=== PATIENT | female | born 1995 | race Caucasian/White ===

== ENCOUNTER 2023-12-29 18:11 | Emergency (ER) | payer MEDICAID ==
[~2023-12-29] VITALS: Ht 160 cm; Wt 90.7 kg
[2023-12-29 18:24] VITALS: TEMP 98.3; O2SAT 100
[2023-12-29 19:20] LABS: HEMATOCRIT. 40.3 % (36.0-48.0); HEMOGLOBIN. 12.7 g/dL (12.0-16.0); MEAN CORPUSCULAR HEMOGLOBIN 29.8 pg (28.0-32.0); MEAN CORPUSCULAR HGB CONC 31.4 g/dL (31.0-37.0); MEAN PLATELET VOLUME 8.3 fl (7.4-10.4); PLATELET 345 x1000/uL (130-400); RED BLOOD CELL COUNT 4.24 mill/uL (4.2-5.4); RED CELL DISTRIBUTION WIDTH 27.7 % (11.6-14.6); WHITE BLOOD COUNT 18.8 x1000/uL (4.5-11.0)
[2023-12-29 19:21] LABS: DIFFERENTIAL COMMENT 1
[2023-12-29 19:24] LABS: CHLORIDE 105 mEq/L (98-107); POTASSIUM 3.6 mEq/L (3.5-5.1); SODIUM 137 mEq/L (136-145)
[2023-12-29 19:25] LABS: CARBON DIOXIDE 25 mEq/L (21-32)
[2023-12-29 19:26] LABS: CALCIUM 9.3 mg/dL (8.7-10.4)
[2023-12-29 19:30] LABS: CREATININE 0.8 mg/dL (0.6-1.0); GLUCOSE 116 mg/dL (70-105)
[2023-12-29 19:31] LABS: UREA NITROGEN BLOOD 10 mg/dL (9-23)
[2023-12-29 19:32] LABS: ALANINE AMINOTRANSFERASE 9 IU/L (10-49); ALBUMIN 4.2 g/dL (3.2-4.8); ASPARTATE AMINOTRANSFERASE 19 IU/L (<34)
[2023-12-29 19:33] LABS: BILIRUBIN DIRECT 0.4 mg/dL (<=3.0); BILIRUBIN TOTAL 1.2 mg/dL (0.1-1.0); PROTEIN TOTAL 7.5 g/dL (6.0-8.3)
[2023-12-29 19:36] LABS: HCG SCREEN NEGATIVE
[2023-12-29 20:08] LABS: CLARITY URINE CLOUDY (CLEAR); COLOR URINE DARK YELLOW (YELLOW); GLUCOSE URINE NEGATIVE (NEGATIVE); KETONES URINE TRACE (NEGATIVE); LEUKOCYTE ESTERASE URINE 1+ (NEGATIVE); NITRITE URINE NEGATIVE (NEGATIVE); OCCULT BLOOD URINE TRACE (NEGATIVE); PROTEIN URINE TRACE (NEGATIVE); SPECIFIC GRAVITY URINE 1.025 (1.005-1.030)
[2023-12-29 20:13] LABS: PLATELET ESTIMATE NORMAL
[2023-12-29 20:14] LABS: ANISOCYTOSIS 2+
[2023-12-29 20:45] LABS: RBC URINE 0-2 /hpf (0-2); SQUAMOUS EPITHELIAL CELL URINE 3+ /lpf (RARE/1+)
[2023-12-29 20:46] LABS: BACTERIA URINE 3+
[2023-12-29] MEDS: ONDANSETRON HCL 4MG/2ML INJ IV NR (22:35)
[2023-12-29] MEDS: ONDANSETRON HCL 4MG/2ML INJ IV STA (22:35)
[2023-12-29] MEDS ORDERED: CEFP100S5 MT (22:37)
[2023-12-29] MEDS: SODIUM CHLORIDE 0.9% 1,000 ML IV ONE (22:47)
[2023-12-29] MEDS: CEFTRIAXONE 1GM/50ML 50 ML IV ONE (23:02)
[2023-12-29] MEDS: KETOROLAC 30MG/ML VIAL IV ONE (23:05)
[2023-12-30 01:58] VITALS: BP 120/81; PULSE 63; RESP 20
== END 2023-12-30 02:08 | disposition home or self-care (01) ==
LOC: ER 18:11
DX: N39.0 Urinary tract infection, site not specified (principal); Z90.49 Acquired absence of other specified parts of digestive tract
CPT/HCPCS: 99285; 74176; 96365; 76705; 96375; 80076; 80048; 81003; 84703; 83690; 85025; 87086; 36415; J0696; J1885; J2405; J7030